=== PATIENT | female | born 1980 ===

== ENCOUNTER 2017-03-05 13:10 | Emergency (ER) | payer OTHER ==
[2017-03-05 13:26] VITALS: BP 101/67; PULSE 100; RESP 20; TEMP 98.5; O2SAT 96
--- NOTE | 2017-03-05 13:41 | C.PDOC ---
History Of Present Illness Patient is a 36 y/o female presents to ED for evaluation of thick cheesy vaginal discharge, and vulvar pruritis for the last 3 days. Otherwise, denies any abdominal pain, pelvic pain, n/v/d, vaginal bleeding, urinary symptoms, fever, or chills. Time Seen by Provider: 03/05/17 13:34 Chief Complaint (Nursing): Female Genitourinary History Per: Patient History/Exam Limitations: no limitations Onset/Duration Of Symptoms: Days (3) Current Symptoms Are (Timing): Still Present Severity: None Pain Scale Rating Of: 0 Associated Symptoms: denies: Fever, Chills, Nausea, Vomiting, Diarrhea, Loss Of Appetite, Back Pain, Chest Pain, Constipation, Urinary Symptoms Alleviating Factors: None Recent travel outside of the [place]: No Additional History Per: Patient Abnormal Vaginal Bleeding: No Past Medical History Reviewed: Historical Data, Nursing Documentation, Vital Signs Vital Signs: Last Vital Signs Temp 98.5 F 03/05/17 13:22 Pulse 100 H 03/05/17 13:22 Resp 20 03/05/17 13:22 BP 101/67 03/05/17 13:22 Pulse Ox 96 03/05/17 14:05 - Medical History PMH: No Chronic Diseases Family History: States: Unknown Family Hx - Social History Hx Alcohol Use: No Hx Substance Use: No Review Of Systems Except As Marked, All Systems Reviewed And Found Negative. Constitutional: Negative for: Fever, Chills Cardiovascular: Negative for: Chest Pain, Palpitations Respiratory: Negative for: Shortness of Breath Gastrointestinal: Negative for: Nausea, Vomiting, Abdominal Pain, Diarrhea, Constipation Genitourinary: Positive for: Vaginal Discharge, Other (vulvar pruritis). Negative for: Dysuria, Frequency, Incontinence, Hematuria, Vaginal Bleeding, Pelvic Pain, Rash Musculoskeletal: Negative for: Neck Pain, Back Pain Skin: Negative for: Rash, Bruising Neurological: Negative for: Headache, Dizziness Physical Exam - Physical Exam Appears: Non-toxic, No Acute Distress Skin: Normal Color, Warm, Dry Head: Atraumatic, Normacephalic Eye(s): bilateral: Normal Inspection Oral Mucosa: Moist Neck: Normal ROM, Supple Chest: Symmetrical Cardiovascular: Rhythm Regular, No Murmur Respiratory: Normal Breath Sounds, No Rales, No Rhonchi, No Wheezing Gastrointestinal/Abdominal: Soft, No Tenderness, No Guarding, No Rebound Back: Normal Inspection, No CVA Tenderness Pelvic: Other (deferred) Extremity: Bilateral: Atraumatic, Normal ROM Neurological/Psych: Oriented x3, Normal Speech, Normal Cognition ED Course And Treatment - Laboratory Results Lab Interpretation: Abnormal (ua neg) Urine POC: Negative O2 Sat by Pulse Oximetry: 96 (RA) Pulse Ox Interpretation: Normal Medical Decision Making Medical Decision Making: typical repeat vaginal candidiasis, not , no UTI defers w/u and pelvic exam with informed consent. one tab full treatment given in ED- Diflucan 150 mg Wants opt obgyn f/u [facility] and [employer] educated. Disposition Doctor Will See Patient In The: Office Counseled Patient/Family Regarding: Studies Performed, Diagnosis - Disposition Referrals: [facility] [Outside] [facility] [Outside] [facility] [Outside] Disposition: HOME/ ROUTINE Disposition Time: 13:41 Condition: GOOD Additional Instructions: Ud Recebio Diflucan 150 mg por via oral- tratamiento completeo. No requiere mas tratemiento Sigue en [facility] Instructions: Vulvovaginal Candidiasis (ED) Forms: [employer] (South African) Print Language: CROATIAN - Clinical Impression Clinical Impression: Candidiasis of vulva and vagina - Scribe Statement The provider has reviewed the documentation as recorded by the Megan Fishman All medical record entries made by the Scribe were at my direction and personally dictated by me. I have reviewed the chart and agree that the record accurately reflects my personal performance of the history, physical exam, medical decision making, and the department course for this patient. I have also personally directed, reviewed, and agree with the discharge instructions and disposition.
[2017-03-05 14:01] LABS: RBC URINE < 1 /hpf (0-3); URINE BILIRUBIN NEGATIVE (NEGATIVE); URINE BLOOD 1+ (NEGATIVE); URINE COLOR Straw (YELLOW); URINE GLUCOSE (UA) NORMAL (Normal); URINE KETONE NEGATIVE (NEGATIVE); URINE LEUKOCYTE ESTERASE NEG Leu/uL (Negative); URINE PROTEIN NEGATIVE (NEGATIVE); URINE UROBILINOGEN NORMAL mg/dL (0.2-1.0); WBC URINE < 1 /hpf (0-5)
== END 2017-03-05 14:15 | disposition home or self-care (01) ==
LOC: C.ER 13:10
DX: B37.3 Candidiasis of vulva and vagina (principal)

== ENCOUNTER 2017-10-04 20:19 | Emergency (ER) | payer OTHER, SELFPAY ==
[2017-10-04 20:21] VITALS: BMI 26.4
[2017-10-04 20:36] VITALS: RESP 20
[2017-10-04] MEDS ORDERED: Sodium Chloride 0.9% 1,000 ML IV ONE (21:20)
[2017-10-04 21:35] LABS: BASO % 0.3 % (0.0-2.0); EOS # 0.1 K/uL (0.0-0.7); EOS % 1.9 % (0.0-4.0); LYMPH # 2.3 K/uL (1.0-4.3); LYMPH % 35.2 % (20.0-40.0); MEAN CELL VOLUME 94.1 fL (81.0-99.0); MEAN CORPUSCULAR HEMOGLOBIN 32.3 pg (27.0-31.0); MEAN CORPUSCULAR HGB CONC 34.4 g/dL (33.0-37.0); MEAN PLATELET VOLUME 8.6 fL (7.2-11.7); MONO # 0.7 K/uL (0.0-0.8); MONO % 11.5 % (0.0-10.0); NEUT # 3.3 K/uL (1.8-7.0); NEUT % 51.1 % (50.0-75.0); RBC 4.03 Mil/uL (3.80-5.20); RED CELL DISTRIBUTION WIDTH 12.7 % (11.5-14.5); WHITE BLOOD COUNT 6.4 K/uL (4.8-10.8)
[2017-10-04 21:43] LABS: INR 1.1; PROTHROMBIN TIME 11.8 SECONDS (9.7-12.2)
[2017-10-04 21:45] LABS: HCG,QUALITATIVE URINE NEGATIVE (NEGATIVE)
[2017-10-04 21:46] LABS: URINE BILIRUBIN NEGATIVE (NEGATIVE); URINE CLARITY Clear (Clear); URINE COLOR Colorless (YELLOW); URINE GLUCOSE (UA) NORMAL (Normal); URINE LEUKOCYTE ESTERASE NEG Leu/uL (Negative); URINE PROTEIN NEGATIVE (NEGATIVE); URINE UROBILINOGEN NORMAL mg/dL (0.2-1.0)
[2017-10-04] MEDS ORDERED: Sodium Chloride 0.9% 1,000 ML ONE (21:47)
[2017-10-04 21:48] LABS: URINE BACTERIA RARE (<OCC)
[2017-10-04 21:49] LABS: URINE BLOOD NEGATIVE (NEGATIVE)
[2017-10-04 21:50] LABS: ALB/GLOB RATIO 1.2 (1.0-2.1); ALBUMIN 4.1 g/dL (3.5-5.0); ALT/SGPT 22 U/L (9-52); AST/SGOT 27 U/L (14-36); BLOOD UREA NITROGEN 12 mg/dL (7-17); CALCIUM 8.9 mg/dl (8.6-10.4); GFR AFRICAN-AMERICAN > 60; GFR NON-AFRICAN AMERICAN > 60
--- NOTE | 2017-10-04 22:13 | C.PDOC ---
History Of Present Illness Pt c/o abnormal vaginal bleeding. 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 Limitations: language barrier Onset/Duration Of Symptoms: Days (7) Current Symptoms Are (Timing): Still Present Severity: Moderate Quality Of Discomfort: denies: "Pain" Alleviating Factors: None Additional History Per: Prior Records Abnormal Vaginal Bleeding: Yes Last Menstral Period: 08/12/2017 Past Medical History Reviewed: Historical Data, Nursing Documentation, Vital Signs Vital Signs: Last Vital Signs Temp 98.3 F 10/04/17 20:35 Pulse 65 10/04/17 20:35 Resp 20 10/04/17 20:35 BP 119/70 10/04/17 20:35 Pulse Ox 99 10/04/17 20:35 - Medical History PMH: No Chronic Diseases Other Surgeries: Breast augmentation Family History: States: Unknown Family Hx - Social History Hx Alcohol Use: No Hx Substance Use: No Review Of Systems Except As Marked, All Systems Reviewed And Found Negative. Constitutional: Negative for: Fever, Weakness Cardiovascular: Negative for: Chest Pain Respiratory: Negative for: Shortness of Breath Gastrointestinal: Negative for: Vomiting, Abdominal Pain Genitourinary: Positive for: Vaginal Bleeding. Negative for: Dysuria, Pelvic Pain Musculoskeletal: Negative for: Neck Pain Skin: Negative for: Rash Neurological: Negative for: Weakness, Numbness Physical Exam - Physical Exam Appears: Non-toxic, No Acute Distress Skin: Normal Color, Warm, Dry, No Rash Head: Atraumatic, Normacephalic Eye(s): bilateral: Normal Inspection, PERRL, EOMI Neck: Normal ROM, Supple Cardiovascular: Rhythm Regular Respiratory: Normal Breath Sounds, No Accessory Muscle Use Gastrointestinal/Abdominal: Soft, No Tenderness, No Distention Back: No CVA Tenderness Extremity: Normal ROM Neurological/Psych: Oriented x3, Normal Motor, Normal Sensation ED Course And Treatment - Laboratory Results Result Diagrams: 10/04/17 21:29 10/04/17 21:29 Lab Interpretation: No Acute Changes Urine POC: Negative O2 Sat by Pulse Oximetry: 99 Pulse Ox Interpretation: Normal Reassessment Condition: Improved Disposition Counseled Patient/Family Regarding: Studies Performed, Diagnosis, Need For Followup, Rx Given - Disposition Referrals: [facility] [Outside] Disposition: HOME/ ROUTINE Disposition Time: 22:12 Condition: IMPROVED Additional Instructions: Follow up with a Production Manager within 1-2 weeks for further evaluation and treatment. Return to the ER if you develop dizziness, pass out, heavy bleeding, abdominal pain, vomiting, worsening of symptoms or if you have any other concerns. Prescriptions: Ibuprofen [Motrin Tab] 600 mg PO Q8 PRN #30 tab PRN Reason: Pain, Mild (1-3) Instructions: Heavy Periods (DC) Forms: Gen Discharge Inst Azeri Print Language: POLISH - Clinical Impression Clinical Impression: DUB (dysfunctional uterine bleeding)
[2017-10-04 22:29] VITALS: BP 96/64; PULSE 59; TEMP 97.8; O2SAT 100
== END 2017-10-04 22:23 | disposition home or self-care (01) ==
LOC: C.ER 20:19
DX: N93.8 Other specified abnormal uterine and vaginal bleeding (principal)
CPT/HCPCS: 80053; 81001; 84702; 84703; 85025; 85610; 85730; 99285; J7040

== ENCOUNTER → 2018-09-23 | Outpatient (CLI) | payer OTHER | LOC: C.MRIC 09:54 | DX: D35.2 Benign neoplasm of pituitary gland (principal) ==

== ENCOUNTER 2018-09-30 11:48 | Outpatient (CLI) | payer OTHER | END 2018-09-30 11:49 | disposition home or self-care (01) | LOC: C.RADIC 11:48 | DX: M54.5 Low back pain (principal) ==